=== PATIENT | female | born 1995 | race African-American/Black ===

== ENCOUNTER 2022-10-26 11:48 | Emergency (ER) | payer MEDICAID, OTHER ==
[~2022-10-26] VITALS: Ht 157.5 cm; Wt 82.0 kg
[2022-10-26 12:00] VITALS: O2SAT 100
[2022-10-26 15:36] LABS: CHLORIDE 106 mEq/L (98-107)
[2022-10-26 15:37] LABS: BASOPHILS % 0.5 % (0.0-2.0); EOSINOPHILS % 2.1 % (0.0-5.0); HEMATOCRIT. 33.5 % (36.0-48.0); HEMOGLOBIN. 11.3 g/dL (12.0-16.0); LYMPHOCYTES % 42.7 % (20.0-50.0); MEAN CORPUSCULAR HEMOGLOBIN 31.5 pg (28.0-32.0); MEAN CORPUSCULAR VOLUME 93.3 fL (81.0-99.0); MEAN PLATELET VOLUME 8.6 fl (7.4-10.4); MONOCYTES % 4.8 % (2.0-8.0); NEUTROPHILS % 49.9 % (40.0-76.0); PLATELET 289 x1000/uL (130-400); RED BLOOD CELL COUNT 3.59 mill/uL (4.2-5.4); RED CELL DISTRIBUTION WIDTH 13.6 % (11.6-14.6)
[2022-10-26 15:40] LABS: HCG SCREEN NEGATIVE
[2022-10-26] MEDS ORDERED: ONDA4TAB50 MT (16:23)
[2022-10-26 16:51] LABS: CLARITY URINE CLEAR (CLEAR); COLOR URINE YELLOW (YELLOW); KETONES URINE NEGATIVE (NEGATIVE); LEUKOCYTE ESTERASE URINE NEGATIVE (NEGATIVE); NITRITE URINE NEGATIVE (NEGATIVE); OCCULT BLOOD URINE 1+ (NEGATIVE); PROTEIN URINE NEGATIVE (NEGATIVE); SPECIFIC GRAVITY URINE 1.019 (1.005-1.030); UROBILINOGEN URINE 0.2 E.U./dL (0.2-1.0)
[2022-10-26 17:13] VITALS: BP 129/74; PULSE 76; RESP 18; TEMP 98.1
== END 2022-10-26 17:15 | disposition home or self-care (01) ==
LOC: ER 11:48
DX: K29.70 Gastritis, unspecified, without bleeding (principal); J45.909 Unspecified asthma, uncomplicated; Z98.890 Other specified postprocedural states
CPT/HCPCS: 36415; 80053; 81003; 81025; 84703; 85025; 99283